=== PATIENT | male | born 1965 | race Caucasian/White ===

== ENCOUNTER 2016-10-01 19:13 | Emergency (ER) | payer BC, OTHER ==
[~2016-10-01 19:13] MED LIST: ASA CHILDREN'S81 MG PO; CLARITIN DPS10 MG PO; FLAGYL-DPS500 MG PO; HYDRODIURIL-DPS25 MG PO; PROBIOTIC1 EAC1 PO; VITAMIN D31000 UNI1 PO; ZESTRIL DPS5 MG PO
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
== END 2016-10-01 19:50 | disposition home or self-care (01) ==
LOC: ER 19:13
DX: S16.1XXA Strain of muscle, fascia and tendon at neck level, initial encounter (principal); S29.012A Strain of muscle and tendon of back wall of thorax, initial encounter; K21.9 Gastro-esophageal reflux disease without esophagitis; V43.52XA Car driver injured in collision with other type car in traffic accident, initial encounter